=== PATIENT | female | born 1990 | race African-American/Black ===

== ENCOUNTER 2016-05-13 07:16 | Emergency (ER) | payer MEDICAID ==
[~2016-05-13] VITALS: Ht 157.5 cm; Wt 117.0 kg
[2016-05-13 07:51] VITALS: BP 129/91
== END 2016-05-13 08:50 | disposition home or self-care (01) ==
LOC: ER 07:16 → EDSEX 07:16 → ER 08:50
DX: J02.9 Acute pharyngitis, unspecified (principal); I10 Essential (primary) hypertension; Z76.0 Encounter for issue of repeat prescription; Z88.6 Allergy status to analgesic agent; Z88.0 Allergy status to penicillin
CPT/HCPCS: 81002